=== PATIENT | female | born 1990 | race Caucasian/White ===

== ENCOUNTER 2016-07-19 13:25 | Emergency (ER) | payer BC ==
[2016-07-19] MEDS ORDERED: ONDANSETRON 4 MG TAB.RAPDIS PO ONE (14:56)
[2016-07-19] MEDS ORDERED: ONDANSETRON 4 MG TAB.RAPDIS ONE (15:04)
--- NOTE | 2016-07-19 15:04 | ERNOTE ---
Medical Problem HPI - Narrative Date of Service: 07/19/16 - General Chief Complaint: Nausea/Vomiting Time Seen by Provider: 07/19/16 14:49 Source: patient Exam Limitations: no limitations - Immun/Allergies/Home Medications Allergies/Adverse Reactions: Allergies No Known Allergies Allergy (Verified 07/19/16 13:33) Home Medications: HOME MEDICATIONS Acyclovir [Zovirax] 800 mg PO TID #0 11/13/14 [Last Taken 07/19/16] Ondansetron [Zofran Odt] 4 mg PO Q6H PRN #20 tab 07/19/16 [Last Taken Unknown] - History of Present History Narrative: Pt. comes in with c/o nausea and vomiting x 2 days. Pt. is under treatment for strep at this time that she has been treated for a week and has resolved with amoxicillin. Pt. denies any SOB, CP, diarrhea, fever, cough, alleviating factors, or aggravating factors. Pt. was seen [facility] for this morning and was sent here. Review of Systems - Review of Systems Constitutional: Present: no symptoms reported. Absent: recent illness, fever, chills, fatigue, malaise EYE: Present: no symptoms reported ENT: Present: no symptoms reported Respiratory: Present: no symptoms reported. Absent: shortness of breath, cough , wheezing Cardiology: Present: no symptoms reported. Absent: chest pain, palpitations, edema Gastrointestinal/Abdominal: Present: nausea, eating less, drinking less. Absent : vomiting, diarrhea, abdominal pain Genitourinary: Present: no symptoms reported Musculoskeletal: Present: no symptoms reported. Absent: back pain, joint pain Skin: Present: no symptoms reported. Absent: rash, change in hair/nails Neurological: Present: no symptoms reported. Absent: headache, dizziness/light- headedness, numbness, tingling All Other Systems: All systems neg except as marked - Patient's Past Medical History Patient History - Medical: Headache, Seizures Patient History - Cardiac/Respiratory: No pertinent hx Patient History - Surgical Procedures: - Family History Mother Family History - Cancer: Breast Father Family History - Medical: History Unknown - Social History Living Situations: home Smoking Status: Never smoker Physical Exam - Physical Exam General Appearance: Present: wd/wn, alert, no apparent distress Eye Exam: Normal inspection: bilateral, PERRL: bilateral, EOMI: bilateral Ears, Nose, Throat: Present: normal ENT inspection, hearing grossly normal, normal pharynx. Absent: dry mucous membranes Neck: Present: normal inspection, nontender. Absent: lymphadenopathy (R), lymphadenopathy (L) Respiratory: Present: no respiratory distress, normal breath sounds, no accessory muscle use, chest nontender, lungs clear Cardiovascular/Chest: Present: regular rate, rhythm, no murmur, normal peripheral pulses Gastrointestinal/Abdominal: Present: normal bowel sounds, nontender, nondistended, soft, no organomegaly Back Exam: Present: normal inspection, normal range of motion, no CVA tenderness , no vertebral tenderness Extremity Exam: Present: normal inspection, non-tender, no edema, normal range of motion Neurological Exam: Present: alert, oriented, normal mood/affect, no motor/ sensory deficits, [employer] II-XII nml as tested, normal cerebellar test Skin Exam: Present: normal color, warm/dry. Absent: pallor, skin rash ED Progress - Date and Time Seen: Date and Time: 07/19/16 16:00 Pt. not dehydrated clinically or in labs will discharge home with zofran. - Results and Orders Patient's Lab Results:: I have reviewed the patient's lab results. - Vital Signs Patient's Vital Signs:: I have reviewed the patient's vital signs. Vital Signs: Vital Signs 07/19/16 13:27 Temperature 35.8 C L Pulse Rate 103 H Respiratory 18 Rate Blood Pressure 126/76 O2 Sat by Pulse 98 Oximetry - Progress/Reassessment Chief Complaint: Nausea/Vomiting Departure - Departure Clinical Impression: Gastroenteritis Disposition: Home self-care Condition: Good Instructions: Viral Gastroenteritis, Adult, [id number] Additional Instructions: Please start probiotic of your choice to protect stomach from antibiotic. push fluids and follow up with primary provider in 2-3 days. Referrals: Charly Bonilla MD [Primary Care Provider] - Prescriptions: Ondansetron [Zofran Odt] 4 mg PO Q6H PRN #20 tab PRN Reason: Nausea
[2016-07-19 15:14] LABS: Hematocrit 42.8 % (37.0-47.0); Hemoglobin 14.4 gm/dL (12.5-16.0); Mean Cell Volume 83.9 fl (78-100); Mean Corpuscular Hemoglobin 28.2 pg (27-31); Mean Corpuscular Hgb Conc 33.6 g/dl (32-36); Mean Platelet Volume 10.4 fl (6.0-9.5); Neutrophil # 3.6 K/mm3 (1.3-6.0); Neutrophil % 59.4 % (42-75.0); Platelet Count 289 K/mm3 (150-450); Red Cell Distribution Width 12.5 % (11.5-14.0)
[2016-07-19 15:25] LABS: Anion Gap 12.1 mmol/L (6.8-13.8); BUN/Creatinine Ratio 16.5 (9.0-21.6); Bilirubin, Total 0.4 mg/dL (0.0-1.1); Ca. Corrected For Albumin 9.1 mg/dL (8.4-10.2); Calcium * 9.4 mg/dL (7.9-10.9); Carbon Dioxide 28.7 mmol/L (24-32.6); Potassium 3.8 mmol/L (3.4-4.6); Total Protein 8.4 gm/dL (6.2-8.2)
[2016-07-19 15:43] LABS: Urine Appearance Clear; Urine Bilirubin Negative (NEGATIVE); Urine Blood 10 /ul (NEGATIVE); Urine Color Yellow; Urine Ketone Negative (NEGATIVE); Urine Nitrite Negative (NEGATIVE); Urine Protein Negative (NEGATIVE); Urine Specific Gravity 1.025 SP.GR. (1.005-1.010); Urine Urobilinogen Normal (NORMAL)
[2016-07-19 15:44] LABS: Urine Bacteria 1+; Urine Mucus Few - 1+; Urine RBC 0-5 /hpf (0-5); Urine WBC 0-5 /hpf (0-5)
[2016-07-19 16:14] VITALS: BP 108/78
== END 2016-07-19 16:15 | disposition home or self-care (01) ==
LOC: ER 13:25
DX: K52.9 Noninfective gastroenteritis and colitis, unspecified (principal)